=== PATIENT | female | born 1960 | race Caucasian/White ===

== ENCOUNTER → 2017-02-03 | Outpatient (CLI) | payer BC | LOC: KOH-I 13:36 | DX: M54.41 Lumbago with sciatica, right side (principal); M51.16 Intervertebral disc disorders with radiculopathy, lumbar region | CPT/HCPCS: 72110 ==

== ENCOUNTER → 2017-02-18 | Outpatient (CLI) | payer BC | LOC: KOH-I 15:09 | DX: M54.5 Low back pain (principal); M47.816 Spondylosis without myelopathy or radiculopathy, lumbar region; M47.817 Spondylosis without myelopathy or radiculopathy, lumbosacral region; M99.73 Connective tissue and disc stenosis of intervertebral foramina of lumbar region | CPT/HCPCS: 72148 ==

== ENCOUNTER → 2021-01-21 | Outpatient (CLI) | payer BC | LOC: CT 01-07 09:30 | DX: D73.89 Other diseases of spleen (principal) | CPT/HCPCS: 74150 ==

== ENCOUNTER → 2021-02-19 | Outpatient (CLI) | payer BC | LOC: EXRD 11:02 | DX: Z78.0 Asymptomatic menopausal state (principal); M85.89 Other specified disorders of bone density and structure, multiple sites | CPT/HCPCS: 77080 ==

== ENCOUNTER → 2021-03-15 | Outpatient (CLI) | payer BC | LOC: KOH-I 16:11 | DX: R07.81 Pleurodynia (principal) | CPT/HCPCS: 71045; 71101 ==

== ENCOUNTER → 2021-07-17 | Outpatient (CLI) | payer BC | LOC: EXRD 13:14 | DX: M19.049 Primary osteoarthritis, unspecified hand (principal); R22.32 Localized swelling, mass and lump, left upper limb; M19.042 Primary osteoarthritis, left hand; M19.041 Primary osteoarthritis, right hand | CPT/HCPCS: 73130; 73140 ==